=== PATIENT | male | born 1975 | race African-American/Black ===

== ENCOUNTER 2018-08-20 16:32 | Emergency (ER) | payer OTHER ==
[~2018-08-20] VITALS: Ht 170.2 cm; Wt 64.9 kg
[2018-08-20] MEDS ORDERED: MORPHINE SULFATE INJ 4 MG/ML INJ 1ML ONE (17:06)
[2018-08-20] MEDS ORDERED: ONDANSETRON HCL 4 MG ORAL DISINTEGRATING TAB ONE (17:06)
[2018-08-20] MEDS ORDERED: MORPHINE SULFATE 2 MG/ML SYR 1ML IV STA (18:25)
[2018-08-20] MEDS ORDERED: ONDANSETRON HCL 4 MG ORAL DISINTEGRATING TAB PO ONE (18:30)
--- NOTE | 2018-08-20 18:31 | Diagnostic Imaging Report ---
LEFT THUMB AND INDEX FINGER - 3 IMAGES HISTORY: Lacerations, vomiting and to a lesser extent the index finger COMPARISON: None available. FINDINGS: Bones: No acute displaced fracture. No aggressive osseous lesion. Joints: Osseous alignment is within normal limits and the joint spaces are well-maintained. Soft tissues: Soft tissue defects of the distal thumb greater than the radial side of the mid to distal index finger. No definitive radiopaque foreign body. IMPRESSION: Soft tissue defects without definitive radiopaque foreign body or underlying acute displaced fracture. Signed by: Dr. Gal Morrison D.O., M.M.M. on 08/20/2018 6:28 PM
[2018-08-20] MEDS ORDERED: MORPHINE SULFATE INJ 4 MG/ML INJ 1ML IV ONE (18:45)
[2018-08-20] MEDS ORDERED: TRIMETHOPRIM/SULFAMETHOXAZOLE 160-800 MG TAB PO ONE (19:30)
[2018-08-20] MEDS ORDERED: TRIMETHOPRIM/SULFAMETHOXAZOLE 160-800 MG TAB ONE (19:30)
--- NOTE | 2018-08-20 19:31 | NUR ---
REPORT TO [facility] ALL QUESTIONS ANSWERED
[2018-08-20 19:53] VITALS: BP 136/77
== END 2018-08-20 20:00 | disposition home or self-care (01) ==
LOC: FSED 16:32
DX: S61.012A Laceration without foreign body of left thumb without damage to nail, initial encounter (principal); S61.211A Laceration without foreign body of left index finger without damage to nail, initial encounter; Y93.H3 Activity, building and construction; W31.2XXA Contact with powered woodworking and forming machines, initial encounter; Y92.69 Other specified industrial and construction area as the place of occurrence of the external cause; Y99.0 Civilian activity done for income or pay
CPT/HCPCS: 73140; 99283; J2270; Q0162